=== PATIENT | male | born 1980 | race Two or more races ===

== ENCOUNTER 2023-08-09 14:15 | Emergency (ER) | payer OTHER ==
[~2023-08-09] VITALS: Ht 185.4 cm; Wt 89.4 kg
[2023-08-09] MEDS ORDERED: ZYRTEC10 M3 PO (14:43)
[2023-08-09] MEDS ORDERED: ACID REDUCER20 M1 PO (14:43)
[2023-08-09] MEDS ORDERED: hydrOXYzine PAMOATE 25 MG CAPSULE PO ONE (17:00)
[2023-08-09 17:08] LABS: PH,URINE 5.5 (5.0-8.0); URINE APPEARANCE Clear; URINE BILIRRUBIN Negative (NEGATIVE); URINE BLOOD Negative; URINE COLOR Yellow; URINE GLUCOSE Negative (NEGATIVE); URINE LEUKOCYTE Negative; URINE NITRATE Negative; URINE PROTEIN Negative (NEGATIVE); URINE UROBILINOGEN 0.2 E.U./dl
[2023-08-09 17:09] LABS: HEMATOCRIT 45.8 % (39.0-48.0); HEMOGLOBIN 16.2 g/dL (13-16.00); MEAN CORPUSCULAR HEMOGLOBIN 30.8 pg (27.00-32.0); MEAN CORPUSCULAR HGB CONC 35.4 g/dl (32.0-36.0); PLATELET COUNT 207 K/uL (150-450); RED BLOOD COUNT 5.27 M/uL (4.00-6.00); RED CELL DISTRIBUTION WIDTH 12.9 % (11.5-14.5)
[2023-08-09 17:11] LABS: URINE BACTERIA 55.4 uL (0.0-1933); URINE RBC 4.5 uL (0.0-20.8)
[2023-08-09 17:23] LABS: CALCIUM 9.4 mg/dL (8.5-10.1); CREATININE SERUM 1.03 mg/dL (0.70-1.30); GFR 78.45; POTASSIUM 3.75 mEq/L (3.5-5.1)
[2023-08-09 17:25] LABS: URINE EPITHELIAL CELLS 0.9 uL (0.0-38.8)
== END 2023-08-09 19:32 | disposition home or self-care (01) ==
LOC: ER 14:16
PROVIDERS: Nurse Practitioner Family
DX: R07.89 Other chest pain (principal); Z88.6 Allergy status to analgesic agent

== ENCOUNTER → 2024-08-10 | Emergency (ER) | payer OTHER ==
[~2024-08-10] VITALS: Ht 185.4 cm; Wt 92.1 kg
[~2024-08-10] MED LIST: ACID REDUCER20 M1 PO; ZYRTEC10 M3 PO
== END | disposition home or self-care (01) ==
LOC: ER 10:33
DX: R53.81 Other malaise (principal); R51.9 Headache, unspecified; I10 Essential (primary) hypertension; Z88.6 Allergy status to analgesic agent